=== PATIENT | male | born 1980 | race Caucasian/White ===

== ENCOUNTER 2018-07-08 18:25 | Emergency (ER) | payer OTHER ==
[2018-07-08 18:58] LABS: ADD MAN DIFF? NO
[2018-07-08] MEDS: HALOPERIDOL 5 MG INJ IV (19:01)
[2018-07-08] MEDS: SOD CHLORIDE 0.9% 1,000 ML IV (19:01)
[2018-07-08 19:02] LABS: BASOPHIL # 0.1 10^3/ul (0.0-0.1); BASOPHILS % 1.4 % (0.0-2.0); EOSINOPHILS # 0.2 10^3/ul (0.0-0.5); EOSINOPHILS % 3.6 % (0.0-7.0); HEMATOCRIT 34.4 % (42.0-52.0); HEMOGLOBIN 11.6 g/dl (14.0-18.0); LYMPHOCYTES # 2.1 10^3/ul (0.8-2.9); LYMPHOCYTES % 42.3 % (15.0-51.0); MEAN CORPUSCULAR HEMOGLOBIN 30.9 pg (29.0-33.0); MEAN CORPUSCULAR HGB CONC 33.7 g/dl (32.0-37.0); MEAN CORPUSCULAR VOLUME 91.5 fl (82.0-101.0); MEAN PLATELET VOLUME 7.9 fl (7.4-10.4); MONOCYTE # 0.4 10^3/ul (0.3-0.9); MONOCYTES % 7.8 % (0.0-11.0); NEUTROPHIL # 2.2 10^3/ul (1.6-7.5); NEUTROPHILS % 44.7 % (39.0-77.0); PLATELET COUNT 318 10^3/UL (140-415); RED BLOOD COUNT 3.76 10^6/ul (4.70-6.10); RED CELL DISTRIBUTION WIDTH 12.9 % (11.5-14.5)
[2018-07-08 19:20] LABS: ALANINE AMINOTRANSFERASE 31 IU/L (13-69); ALBUMIN 4.1 g/dl (3.3-4.9); ALBUMIN/GLOBULIN RATIO 1.41; ALKALINE PHOSPHATASE 86 IU/L (42-121); ANION GAP 8 (5-13); ASPARTATE AMINO TRANSFERASE 21 IU/L (15-46); BILIRUBIN,INDIRECT 1.3 mg/dl (0-1.1); BILIRUBIN,TOTAL 1.3 mg/dl (0.2-1.3); BLOOD UREA NITROGEN 20 mg/dl (7-20); CALCIUM 8.8 mg/dl (8.4-10.2); CARBON DIOXIDE 27 mmol/L (21-31); CHLORIDE 107 mmol/L (97-110); CREATININE 0.85 mg/dl (0.61-1.24); Estimated GFR > 60 mL/min (>60); GLUCOSE 102 mg/dl (70-220); POTASSIUM 3.4 mmol/L (3.5-5.1); SODIUM 142 mmol/L (135-144)
[2018-07-08 19:22] LABS: ACETAMINOPHEN < 10.0 ug/ml (10.0-30.0)
[2018-07-08 19:23] LABS: ETHANOL < 10.0 mg/dl (0-0); SALICYLATE < 1.0 mg/dl (5.0-30.0)
== END 2018-07-09 05:15 | disposition home or self-care (01) ==
LOC: E/R 07-09 05:15
DX: F15.10 Other stimulant abuse, uncomplicated (principal); R40.2142 Coma scale, eyes open, spontaneous, at arrival to emergency department; R40.2342 Coma scale, best motor response, flexion withdrawal, at arrival to emergency department; R40.2242 Coma scale, best verbal response, confused conversation, at arrival to emergency department
CPT/HCPCS: 36415; 70450; 80053; 80307; 85025; 93005; 96374; 99285-25